=== PATIENT | male | born 1990 | race Two or more races ===

== ENCOUNTER 2025-07-10 10:25 | Emergency (ER) | payer MEDICAID, SELFPAY ==
[2025-07-10 10:34] VITALS: BP 110/72; PULSE 55; RESP 18; TEMP 36.8; O2SAT 98; BMI 26.5
--- NOTE | 2025-07-10 10:48 | XR_ITS ---
Examination: CT brain head without contrast. 2-D sagittal coronal reconstructions Date and time of exam: July 10, 2025, 1057 hours INDICATIONS: Onset dizziness beginning this morning CTDI: vol (mGy): 51 DLP: (mGycm): 1035 Technique: Multiple CT axial sections of the brain have been obtained, 5 mm slice thickness. Contrast has not been administered. 2-D sagittal, coronal reconstructions have been obtained Low dose protocols were performed. One or more of the following dose reduction techniques were used; automated exposure control, adjustment of the mA and/or KV according to patient size, use of iterative reconstruction technique. Findings: No significant ventricular enlargement. Intra-axial or extra-axial hemorrhage density is not seen. No mass effect or midline shift Basal cisterns are not remarkable. Fourth ventricle is midline. Cranial vault intact. Impression: Negative for acute hemorrhage, mass effect or midline shift Advise clinical correlation and follow-up accordingly
--- NOTE | 2025-07-10 10:48 | XR_ITS ---
EXAMINATION: PA lateral chest 2 views TECHNIQUE: Upright PA lateral chest 2 views Date and time: July 10, 2025, 1109 hours INDICATIONS: Shortness of breath chest pain beginning 2 days ago FINDINGS: Normal heart size The lungs are clear. The osseous structures are intact IMPRESSION: No active disease
--- NOTE | 2025-07-10 10:48 | EKG_ITS ---
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
--- NOTE | 2025-07-10 10:49 | PD.EDRME ---
Rapid Medical Screening Exam RME Arrival date/time: 07/10/25 10:25 34-year-old male presents to the emergency department today for complaints of dizziness Chief Complaint: Dizziness Vital signs: Vital Signs Temperature 98.2 F 07/10/25 10:34 Pulse Rate 55 L 07/10/25 10:34 Respiratory Rate 18 07/10/25 10:34 Blood Pressure 110/72 07/10/25 10:34 Pulse Oximetry (%) 98 07/10/25 10:34 Oxygen Delivery Method Room Air 07/10/25 10:34 Vital signs reviewed by provider: Yes Exam: On exam patient well-appearing patient is not appear ill or toxic Neurological exam normal Heart lung sounds are clear Clinical Impression: Labs and imaging obtained
[2025-07-10] MEDS: MECLIZINE HCL 25 MG TABLET 50 MG PO (10:57)
[2025-07-10 11:28] LABS: Basophils # (Auto) 0.0 Thou/mm3 (0.0-0.2); Basophils % (Auto) 0 % (0-2.5); Eosinophils # (Auto) 0.1 Thou/mm3 (0.0-0.5); Eosinophils % (Auto) 1 % (0-10); Hematocrit 41.4 % (41.0-53.0); Hemoglobin 14.6 g/dL (13.5-16.0); Immature Granulocytes Auto 0.02 Thou/mm3 (0.00-0.00); Lymphocytes # (Auto) 1.2 Thou/mm3 (1.0-4.8); Lymphocytes % (Auto) 19 % (10-50); Mean Corpuscular HGB Conc 35.3 g/dl (31.0-37.0); Mean Corpuscular Hemoglobin 33.2 pg (25.0-35.0); Mean Corpuscular Volume 94 fL (80-100); Monocytes # (Auto) 0.5 Thou/mm3 (0.0-0.8); Monocytes % (Auto) 7 % (0-12); Neutrophils # (Auto) 4.6 Thou/mm3 (1.8-7.7); Neutrophils % (Auto) 72 % (37-80); Nucleated Red Blood Cell # 0.00 Thou/mm3 (0.00-0.00); Nucleated Red Blood Cell % 0 /100 WBC (0); Platelet Count 169 Thou/mm3 (140-440); RDW Standard Deviation 41.1 fL (35.1-43.9); Red Blood Count 4.40 Miln/mm3 (4.50-5.90); White Blood Count 6.3 Thou/mm3 (3.8-10.6)
[2025-07-10 11:44] LABS: Alanine Aminotransferase 19 U/L (10-49); Albumin, Serum 4.7 gm/dL (3.5-5.0); Albumin/Globulin Ratio 1.7 (1.2-2.2); Alkaline Phosphatase 79 U/L (46-116); Anion Gap 8 (7-16); Aspartate Amino Transferase 23 U/L (0-34); BUN/Creatinine Ratio 18 Ratio (12-20); Bilirubin,Total 0.6 mg/dL (0.3-1.2); Blood Urea Nitrogen 14 mg/dL (9-23); Calcium 9.0 mg/dL (8.3-10.6); Calcium (Corrected) 9.0 mg/dL (8.5-10.1); Carbon Dioxide 27.3 mMol/L (20.0-31.0); Chloride 107 mMol/L (98-107); Creatinine (Component) 0.8 mg/dL (0.6-1.3); Estimated Creatinine Clearance 133.1 mL/min (>60); Globulin 2.7 gm/dL (2.3-3.5); Glucose 93 mg/dL (74-106); Osmolality,Calculated 283 (275-295); Potassium 3.9 mMol/L (3.4-5.1); Sodium 142 mMol/L (136-145); Total Protein 7.4 gm/dL (5.7-8.2); Troponin I < 0.002 ng/mL (0.0-0.045); eGFR > 60 See Note
[2025-07-10 11:46] LABS: Collection Type, Urine Clean Catch; Squamous Epithelial Cell,Urine 0 /hpf (0-5)
[2025-07-10 11:54] LABS: Bilirubin,Urine Negative (Negative); Blood,Urine Negative (Negative); Clarity,Urine Clear (Clear/Hazy); Color,Urine Yellow (Lt Yel-Yel); Culture Indicated,Urine Not Indicated; Glucose, Urine Negative (Negative); Ketones,Urine Negative (Negative); Leukocyte Esterase,Urine Negative (Negative); Nitrite,Urine Negative (Negative); PH,Urine 5.5 (5.0-7.0); Protein,Urine Negative (Neg - Trace); RBC,Urine 1 /hpf (0-3); Specific Gravity,Urine 1.033 (1.001-1.035); Urobilinogen,Urine Negative mg/dL (0.0-1.0); WBC,Urine 2 /hpf (0-5)
[2025-07-10 12:00] LABS: Amphetamine/Methamp Scrn,U Negative (Negative); Barbiturate Screen,Urine Negative (Negative); Benzodiazepines Screen,Urine Negative (Negative); Benzoylecgonine Screen, Ur Negative (Negative); Fentanyl Screen,Urine Negative (Negative); Opiate Screen,Urine Negative (Negative); THC Screen,Urine Negative (Negative)
--- NOTE | 2025-07-10 13:46 | PD.EDDIZZY ---
ED Dizzyness RME/HPI General Chief Complaint: Dizziness Stated Complaint: DIZZY X3 DAYS AND ABD PAIN Time Seen by Provider: 07/10/25 12:28 Arrival date/time: 07/10/25 10:25 34-year-old male patient with significant history of gastritis, came in for evaluation regarding dizziness. This been ongoing for the last 3 days, associated with abdominal discomfort. Patient told me that has been constipated for the last few days. Patient denies any upper or lower extremity weakness. Denies any headache. Denies any slurring of speech .. Denies any head trauma or fall fever or other complaints. Patient is ambulatory RME / HPI RME / HPI Narrative: 07/10/25 10:25 34-year-old male presents to the emergency department today for complaints of dizziness Exam: On exam patient well-appearing patient is not appear ill or toxic Neurological exam normal Heart lung sounds are clear Impression: Labs and imaging obtained Related Data Previous Rx's ?Medication ?Instructions ?Recorded cyclobenzaprine 10 mg tablet 10 mg PO TID #20 tabs 05/03/18 prednisone 50 mg tablet 50 mg PO QDAY #5 tabs 05/03/18 cyclobenzaprine 10 mg tablet 10 mg PO BID #10 tabs 09/20/19 ibuprofen 800 mg tablet 800 mg PO Q6H PRN pain #10 tabs 09/20/19 hydrocodone 5 mg-acetaminophen 325 1 tab PO Q6H #20 tabs 09/24/19 mg tablet (Amelia) tamsulosin 0.4 mg capsule (Flomax) 0.4 mg PO QDAY #14 caps 09/24/19 famotidine 40 mg tablet (Pepcid) 40 mg PO BID #20 tabs 07/10/25 meclizine 50 mg tablet 50 mg PO BID PRN dizziness or 07/10/25 vertigo #30 tabs polyethylene glycol 3350 17 gram 17 g PO BID #14 ea 07/10/25 oral powder packet (Miralax) Allergies Allergy/AdvReac Type Severity Reaction Status Date / Time No Known Allergies Allergy Verified 07/10/25 10:27 Review of Systems Review of Systems Narrative Review of Systems: Review of system reviewed and within normal limits except mentioned in HPI ED Exam Narrative Physical exam: VITAL SIGNS: Reviewed. GENERAL APPEARANCE: Alert and interactive, follows commands, no acute distress, HEAD AND FACE: Non-traumatic. ENT: PERRL, pink conjunctivitis, eyelid no trauma, Mucous membrane moist. NECK: Supple, nontender, no nuchal rigidity. CHEST: No tenderness, no crepitus, no paradoxical movement, no retractions. LUNGS: Clear, well ventilated, symmetric, no rales, no wheezing, no ronchi, no stridor, good breath sounds bilaterally. HEART: Regular rate, regular rhythm, no murmur, no gallops. ABDOMEN: Soft, positive bowel sounds, nondistended, no guarding, upper abdominal tenderness mild, no rebound, no masses, RECTAL: Deferred. GENITAL: Deferred. NEUROLOGICAL: Gross motor function intact sensory function intact, Appropriate for age. MUSCULOSKELETAL: low back nontender, full range of motion. EXTREMITIES: Nontender, full range of motion. SKIN: Color pink, dry, no rash, no lacerations, no abrasions, no contusions. LYMPHATICS: Deferred. Course Quality Measures none Orders Category Date Time Status EKG (ED ONLY) *Do not use* NOW Care 07/10/25 10:[address] head/brain wo con Stat Exams 07/10/25 10:48 Completed EKG (ED Only) Stat Exams 07/10/25 10:48 Draft XR chest 2V Stat Exams 07/10/25 10:48 Completed CBC Stat Lab 07/10/25 11:00 Completed Comprehensive Metabolic Panel Stat Lab 07/10/25 11:00 Completed Drug Screen,Urine Stat Lab 07/10/25 11:24 Completed Troponin I Stat Lab 07/10/25 11:00 Completed Urinalysis, C/S if Indicated Stat Lab 07/10/25 11:25 Completed Meclizine HCl [Antivert] Med 07/10/25 10:50 Discontinued 50 mg PO X1 ONE Vital Signs Vital signs: Vital Signs Temperature 98.2 F 07/10/25 10:34 Pulse Rate 55 L 07/10/25 10:34 Respiratory Rate 18 07/10/25 10:34 Blood Pressure 110/72 07/10/25 10:34 Pulse Oximetry (%) 98 07/10/25 10:34 Oxygen Delivery Method Room Air 07/10/25 10:34 Dizziness MDM Narrative MDM Narrative:: 34-year-old male patient with significant history of gastritis, came in for evaluation regarding dizziness. This been ongoing for the last 3 days, associated with abdominal discomfort. Patient told me that has been constipated for the last few days. Patient denies any upper or lower extremity weakness. Denies any headache. Denies any slurring of speech .. Denies any head trauma or fall fever or other complaints. Patient is ambulatory Patient's workup today all came back unremarkable including CT scan of the head. I personally reviewed and interpreted the x-ray of this patient. There is no acute abnormalities found, no infiltrates no pneumothorax no hemothorax normal chest x-ray. Review of other structures was without significant abnormal findings also. I additionally reviewed the radiologist report and agree with the interpretation. EKG showed sinus bradycardia, ventricular rate of 56 bpm, no ST segment elevation depression noted as interpreted by me, also interpreted by Dr. Awilda ED MD. As interpreted by me. Was given meclizine with significant improvement of symptoms. He is stable for discharge home. Patient data External records reviewed:: None Clinical information provided by:: patient Social determinants that could affect healthcare access:: none Patient has the following chronic illnesses:: None How is presenting disease/condition affected by chronic disease/condition?: no chronic disease Evaluation data The following diagnostics were reviewed and interpreted by me:: lab results, radiology exam(s) and EKG tracing(s) Lab and/or radiology exams considered but not ordered:: None Interpretation Summary: See results MDM Medications / Prescriptions Medications or Prescriptions considered but not ordered:: None Medication administrations:: Medication Administration History Discontinued Medications Meclizine HCl (Meclizine Hcl 25 Mg Tablet) 50 mg PO X1 ONE Stop: 07/10/25 10:51 Last Admin: 07/10/25 10:57 Dose: 50 mg Documented By: Meclizine Consultations Consultation(s) initiated? (list below): No Diagnosis Dizziness Differential Diagnosis: benign paroxysmal positional vertigo and other (Abdominal pain, constipation gastritis, dizziness) Most likely diagnosis given after review of the tests above:: Constipation gastritis dizziness Admission Indicated Admission indicated?: not indicated Admission Request Was there a request for admission?: No Disposition Plan Disposition Plan: Discharge Discharge Attestation Discharge Attestation: The patient was given an opportunity to ask questions and understood the discharge instructions. Discharge instructions specifically effects, indications for sooner follow up or return to the emergency department, and the expected course of current diagnosis. Patient condition: Stable Discharge Plan Plan Patient Disposition: HOME (Self Care) Discharge Disposition comment: stable Prescriptions/Referrals Prescriptions/Med Rec: New famotidine [Pepcid] 40 mg tablet 40 mg PO BID Qty: 20 0RF meclizine 50 mg tablet 50 mg PO BID PRN (Reason: dizziness or vertigo) Qty: 30 0RF polyethylene glycol 3350 [Miralax] 17 gram powder in packet 17 g PO BID Qty: 14 0RF No Action hydrocodone-acetaminophen [Amelia] 5-325 mg tablet 1 tab PO Q6H MDD 6 Qty: 20 0RF tamsulosin [Flomax] 0.4 mg capsule 0.4 mg PO QDAY Qty: 14 0RF cyclobenzaprine 10 mg tablet 10 mg PO TID Qty: 20 0RF prednisone 50 mg tablet 50 mg PO QDAY Qty: 5 0RF ibuprofen 800 mg tablet 800 mg PO Q6H PRN (Reason: pain) Qty: 10 0RF cyclobenzaprine 10 mg tablet 10 mg PO BID Qty: 10 0RF Referrals: Kerwin Bernal MD [Primary Care Provider, Family Practice] - In 1 week Problem List Clinical Impression: Constipation, Abdominal pain, Dizziness Patient/Caregiver Discharge Instructions Discharge Activity: activity as tolerated Education Materials: Abdominal Pain Additional Instructions: Thank you for the opportunity for serving you today. You are stable for discharged . You are advised to: Follow-up with your PCP in 1 to 2 days Return to ED for worsening of symptoms Increase oral fluids Take medication as prescribed Print Language: Armenian Stand Alone Forms: Helen Award Info., Patient Portal Info Letter PA/MARIS Supervising Physician PA/MARIS Supervising Physician: MD Awilda
== END 2025-07-10 13:59 | disposition home or self-care (01) ==
PROVIDERS: Nurse Practitioner Primary Care; Emergency Provider Emergency Medicine; PCP Family Medicine
DX: K59.00 Constipation, unspecified (principal); R42 Dizziness and giddiness
CPT/HCPCS: 36415; 70450; 71046; 80053; 80307; 81001; 84484; 85025; 93005; 99283; A9270